=== PATIENT | male | born 1965 | race Caucasian/White ===

== ENCOUNTER 2024-04-12 08:48 | Outpatient (CLI) | payer OTHER, SELFPAY | END 2024-04-12 08:49 | disposition home or self-care (01) | PROVIDERS: PCP Family Medicine; Visit Provider Family Medicine | DX: D64.9 Anemia, unspecified (principal); E16.1 Other hypoglycemia; E66.9 Obesity, unspecified; R73.01 Impaired fasting glucose; G47.33 Obstructive sleep apnea (adult) (pediatric); Z87.19 Personal history of other diseases of the digestive system; Z79.899 Other long term (current) drug therapy; Z12.5 Encounter for screening for malignant neoplasm of prostate; Z11.3 Encounter for screening for infections with a predominantly sexual mode of transmission; Z11.59 Encounter for screening for other viral diseases; Z13.6 Encounter for screening for cardiovascular disorders; Z13.21 Encounter for screening for nutritional disorder; Z13.9 Encounter for screening, unspecified | CPT/HCPCS: 80053; 80061; 82607; 82728; 83540; 83550; 84270; 84402; 84403; 84443; 86703; 86803; G0103 ==

== ENCOUNTER 2024-06-23 08:03 | Outpatient (CLI) | payer OTHER, SELFPAY | END 2024-06-23 08:04 | disposition home or self-care (01) | LOC: NFLDREF 06-26 07:58 | PROVIDERS: PCP Family Medicine; Referring Provider Family Medicine; Visit Provider Family Medicine | DX: D64.9 Anemia, unspecified (principal); Z13.6 Encounter for screening for cardiovascular disorders | CPT/HCPCS: 80061; 83540; 83550 ==

== ENCOUNTER 2024-12-05 11:13 | Outpatient (CLI) | payer OTHER, SELFPAY | END 2024-12-05 11:14 | disposition home or self-care (01) | PROVIDERS: PCP Family Medicine; Visit Provider Family Medicine | DX: D64.9 Anemia, unspecified (principal); E16.1 Other hypoglycemia; G47.33 Obstructive sleep apnea (adult) (pediatric); Z00.00 Encounter for general adult medical examination without abnormal findings; Z79.899 Other long term (current) drug therapy; Z87.19 Personal history of other diseases of the digestive system; Z99.89 Dependence on other enabling machines and devices; E66.9 Obesity, unspecified; Z68.39 Body mass index [BMI] 39.0-39.9, adult | CPT/HCPCS: 80053; 80061; 82607; 82728; 82746; 83525; 83540; 83550; 84270; 84402; 84403; 86803; G0103 ==